=== PATIENT | male | born 1975 | race Hispanic/Latino ===

== ENCOUNTER 2017-06-28 17:28 | Emergency (ER) | payer OTHER ==
[2017-06-28] MEDS: PERCOCET 5MG/325MG TAB PO (19:45)
[2017-06-28] MEDS: IBUPROFEN 600 MG TAB PO (19:45)
== END 2017-06-28 20:20 | disposition home or self-care (01) ==
LOC: M ED 17:28
DX: S70.11XA Contusion of right thigh, initial encounter (principal); S70.12XA Contusion of left thigh, initial encounter; W22.8XXA Striking against or struck by other objects, initial encounter; Y92.89 Other specified places as the place of occurrence of the external cause; M79.604 Pain in right leg; M79.605 Pain in left leg
CPT/HCPCS: 73552